=== PATIENT | female | born 2005 | race Caucasian/White ===

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

== ENCOUNTER 2024-07-09 13:30 | Day surgery (SDC) | payer OTHER, SELFPAY ==
[2024-07-09] VITALS (9 sets, daily range): BP systolic 90–134; BP diastolic 60–79; PULSE 77–85; RESP 16; TEMP 36.6–36.7; O2SAT 99–100; BMI 18.1
[2024-07-09 14:10] LABS: Internal QC Validated? YES +Cl - CLEAR BKGD; Pregnancy, Urine Negative Negative
--- NOTE | 2024-07-09 14:24 | PCM.PRE.AN2 ---
ASA Classification* ASA Classification ASA Classification: 2 Assessment & Plan Anesthesia* Anesthesia Assessment Anesthesia Assessment: Discussed sedation and/or anesthesia options, risks, benefits, and alternatives with patient/parents/legal guardian/POA. Questions invited. The patient/parents/legal guardian/POA seems to understand and agrees to proceed with anesthesia plan. Reviewed the physical assessment, medical history, allergy history and patient home medications list prior to surgery/procedure/anesthetic and documented any changes. Performed airway and anesthesia risk assessments. Anesthesia Type Anesthesia Type: MAC History Source History Obtained from:: Patient and Chart Anesthesia Focused Assessment* Temperature: 97.8 F Pulse Rate: 85 Blood Pressure: 134/79 Respiratory Rate: 16 Pulse Ox: 100 Oxygen Delivery Method: Room Air Airway Assessment Mouth opens: >3 cm Mallampati Score: III Teeth Condition: Intact Neck Range of motion (ROM): Full ROM (slow to move) Focused Labs Anesthesia Preop lab: CBC CHEMISTRY Potassium 3.6 mmol/L (3.5-5.1) 03/15/19 10:05 03/15/19 Sodium 140 mmol/L (136-145) 03/15/19 10:05 03/15/19 BUN 8 mg/dL (7-18) 03/15/19 10:05 03/15/19 Creatinine 0.59 mg/dL (0.55-1.02) 03/15/19 10:05 03/15/19 Glucose 138 mg/dL (74-106) H 03/15/19 10:05 03/15/19 COAG Urine Test Negative Negative 07/09/24 13:45 07/09/24 Pre-Assessment Diagnosis/Proposed Procedure Planned Operative Procedure(s): RIGHT LITTLE FINGER A1 TAMIKA RELEASE Anesthesia History 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 When Was Last Pacemaker Check QUESTION #4 FULL TEXT: You/Your Family Experience fever (hyperthermia) with Anesthesia Last Oral Intake Last Oral intake: Last Oral Intake NPO since 08:00 07/09/24 13:57 Meds taken in AM with sips of No 07/09/24 13:57 water? Meds patient instructed to take am of surgery Any additional information?: Yes Meds taken in AM with sips of water?: Yes PONV PONV - nuclear fuels reclamation engineer: PONV - nuclear fuels reclamation engineer Female Yes 06/27/24 13:01 HX of Motion Sickness Yes 06/27/24 13:01 HX of N/V After Surgery No 06/27/24 13:01 Non-Smoker Yes 06/27/24 13:01 Duration of Surgery greater No 06/27/24 13:01 than 60 minutes Number of Risk Factors 3 06/27/24 13:01 PONV Score Moderate Risk 06/27/24 13:01 Height & Weight Height & Weight: Anesthesia: Height & Weight Height 5 ft 6 in 07/09/24 13:57 Weight: 51 kg 07/09/24 13:57 Body Mass Index (BMI) 18.1 07/09/24 13:57 Respiratory Assessment Respiratory Assessment - nuclear fuels reclamation engineer: Respiratory Tract Infection Hx - nuclear fuels reclamation engineer Hx Respiratory Tract Infection No 06/27/24 13:01 STOP Sleep Apnea STOP Sleep Apnea - nuclear fuels reclamation engineer: STOP Sleep Apnea - nuclear fuels reclamation engineer Hx Hypertension No 06/27/24 13:01 Hx Sleep Apnea No 06/27/24 13:01 CPAP BIPAP Do you snore loudly (louder No 06/27/24 13:01 than talking or can be heard Do you often feel tired/ Yes 06/27/24 13:01 fatigued/ sleepy during daytime? Has anyone observed you stop No 06/27/24 13:01 breathing during sleep? STOP Results Negative 06/27/24 13:01 QUESTION #5 FULL TEXT : Do you snore loudly (louder than talking or can be heard through closed doors)? 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 Specify any problems Hx of Preganancy in last 3 No 06/27/24 13:01 Months Nurse Filling Out Transfusion DSCHRIBER 06/27/24 13:01 & Questions: Date: 06/27/24 06/27/24 13:01 Time: 13:02 06/27/24 13:01 Patient unable to answer at this time (ie. confused, unrespo /Reproduction History /Reproductive History - nuclear fuels reclamation engineer: /Reproductive Hx- nuclear fuels reclamation engineer Hx Now No 06/27/24 13:01 Gestational Age (in weeks): EDC: Hx Hx Para Hx Section SAB No 06/27/24 13:01 Active Medications Active Medications: Current Medications Generic Name Dose Route Start Last Admin Trade Name Freq PRN Reason Stop Dose Admin Cefazolin Sodium 2 gm/ N/A 20 mls @ 400 mls/hr 07/09/24 15:10 IV 07/09/24 15:12 PREOP ONE [facility] Medical History Wears glasses Depression Anxiety Marijuana use Alcohol use History of steroid therapy Easy bruising Back pain Migraine headache Non-smoker History of pain when walking Hip arthritis Scoliosis Anemia Epilepsy Seizures Home Medications ?Medication ?Instructions ?Recorded ?Last Taken ?Type folic acid 1 mg tablet 3 mg PO QDAY 04/01/24 Unknown History medroxyprogesterone 150 mg/mL 150 mg IM Q12W 04/01/24 Unknown History intramuscular suspension lamotrigine 200 mg tablet 200 mg PO BID 06/21/24 07/09/24 History levetiracetam 750 mg 1,500 mg PO QDAY 06/21/24 07/08/24 History tablet,extended release 24 hr Allergy/AdvReac Type Severity Reaction Status Date / Time No Known Allergies Allergy Verified 07/09/24 13:55 Family History Father Atrial fibrillation Grandmother Atrial fibrillation Grandmother Diabetes Stomach cancer Surgical History H/O spinal fusion Social History Smoking Status: Never smoker Review of Systems (Anesthesia) ROS Narrative System reviewed and no additional complaints, except as documented.
--- NOTE | 2024-07-09 15:37 | HP.PCM_ITS ---
History and Physical Date of Admission: 07/09/24 [facility] [address] [place] [address] OFFICE VISIT Date of Service: 06/21/24 MR#: [id number] Acct: [id number] Name: MARTIN URBINA Rep #: [id number] : 2005 Provider: Dr. Fred Caldwell DO Age/Sex: 19/F Location[place] [facility] Status: Signed Intake Vital Signs 04/01/2410:13 Height 5 ft 6 in Weight: 112 lb 8 oz BMI 18.1 Intake Visit Reasons: RIGHT HAND Chief Complaint: right pinky finger Allergies No Known Allergies Allergy (Verified 06/21/24 11:02) Medications ?Medication ?Instructions ?Recorded ?Confirmed ?Type folic acid 1 mg tablet 3 mg PO QDAY 04/01/24 06/21/24 History medroxyprogesterone 150 mg/mL 150 mg IM Q12W 04/01/24 06/21/24 History intramuscular suspension lamotrigine 200 mg tablet 200 mg PO BID 06/21/24 06/21/24 History levetiracetam 750 mg 1,500 mg PO QDAY 06/21/24 06/21/24 Histo ry tablet,extended release 24 hr PFSH Medical History (Updated 06/21/24 @ 11:21 by Cherri Allen) Hip arthritis Scoliosis Anemia Epilepsy Seizures Surgical History (Updated 06/21/24 @ 11:21 by Cherri Allen) H/O spinal fusion Family History Father Atrial fibrillationGrandmother Atrial fibrillationGrandmother Diabetes Stomach cancer Social History Smoking Status: Never smoker HPI RIGHT HAND Details: This documentation accurately reflects the service provided and the decisions made by me, Dr. Fred Caldwell, 06/21/24 1056. Part of today?s visit was documented by Kailey CARSON, acting as scribe. MARTIN URBINA is a 19 year old F here today for right pinky finger trigger finger. She states that yesterday morning 06/20 she woke up to her finger being stuck and more painful than before but notes that it hasn't been triggering as often. She states that she would like to talk about surgery rather than continuing with injections. The injection that was given last visit did take away her triggering for a period of time. 04/01/2024 visit:NEW patient for her right pinky finger. She states that for about a month now it has been locking on her. She states that it is always painful but is worse when it locks up and tries to straighten it. She denies prior injury or surgery. She denies taking anything for pain. She states the pain goes all the way up the finger. Denies numbness, tingling or other associated symptoms. She states that the finger has gotten caught in a car door a few times in her early teens. Plan:I advised patient that she has trigger finger . Spoke with patient that her treatment options are do nothing, anti-inflammatory, injection, or a1 sophia release. Patient wishes to proceed with an injection today. Ortho Exam General General: Yes no acute distress Neurologic: Yes alert and Yes oriented x3 Psychologic: Yes reasonable and appropriate Right Wrist/Hand Skin/Wound: No Swelling, No Ecchymosis, Yes nail intact and Yes capillary refill normal A1 sophia trigger: Yes WRIST: hypertrophy of ring and 5th digit very faint /mild triggering on exam but she keeps the finger flexed as though can not straighten. Left Wrist/Hand Skin/Wound: No Swelling and No Ecchymosis Head: Normocephalic Atraumatic Chest: symmetrical rise, non-labored breathing, no audible wheeze Abdomen: no guarding, non-rigid Coding Level of Care Code Off vis,est,level 4 Diagnoses Trigger finger, right little finger M65.351 Assessment and Plan Assessment and Plan (1) Trigger finger, right little finger: Status: Acute Plan Patient is here today for trigger finger of the right pinky finger. She had an injection on 04/01/24 that did beef cattle specialist her good relief however triggering returned and she is not interested in any further injections. Reviewed the pre-operative plans with the patient. Risks and benefits of the procedure were fully explained, including but not limited to infection, neurovascular injury, continued pain, stiffness, need for further surger/recurrence, general risks of anesthesia,. The patient understands all the risks and does wish to proceed with written consent. I advised patient that for the fist 2 weeks she will have a 1/2 pound restriction then the third week she can increase to 5lbs. After the first 3 weeks she can lift however much is comfortable but I did advise her that she may have some palm tenderness. Projected surgery date is July 09. She does not need any work restrictions that she is unemployed. Follow up at 2 weeks post-op or sooner if pain, swelling, numbness or associated symptoms, or concerns develop. All questions answered. Patient in agreement of plan. 06/21/24 1128 I have examined the patient and the H&P has been reviewed. There are no clinical changes since date of exam. <Electronically signed by Fred Caldwell DO> Date Fred Caldwell DO
[2024-07-09] MEDS: Cefazolin 2 GM in Syringe IV (15:43)
[2024-07-09] MEDS: Lidocaine 1% /Epi 1:100 (20ml) 20 ML Vial (15:55)
--- NOTE | 2024-07-09 16:10 | OP.PCM_ITS ---
Operative Report (Standard) Operative Information Date of Procedure: 07/09/24 Pre-Operative Diagnosis: Right fifth digit trigger finger Post-Operative Diagnosis: Same Surgery/Procedure Performed: Right fifth digit A1 sophia release cold storage supervisor: Yes Stock Raiser: Gary Maharaj Tasks completed by certified surgical first assistant: Opening & closing and Retracting Type of Anesthesia: Local and MAC RN Documented Start/Stop Times: Operation Date: 07/09/24 15:10 Case Time Into Pre-Op 07/09/24 13:40 Out of Pre-Op 07/09/24 15:39 Anesthesia Start 07/09/24 15:43 Into Room 07/09/24 15:43 Procedure Start 07/09/24 15:55 Procedure End 07/09/24 16:06 Procedure Start Time: 15:55 Procedure Stop Time: 16:06 Select all DRAINS/GRAFTS/IMPLANTS that apply: None Estimated Blood Loss: 0 Specimen collected: No Description of surgery: Preoperative diagnosis; right fifth digit trigger finger Postoperative diagnosis; same Procedure: Right fifth digit A1 sophia release Anesthesia: Local with MAC Tourniquet time; 10 minutes 250 mm Hg Complications: None Indication for procedure; This is a 19-year-old female- with symptoms consistent with trigger finger. Risks benefits and alternatives were reviewed including risks of bleeding infection nerve tendon tissue damage need for further surgery and continued pain and symptoms, hypersensitivity to scar/incision and recurrence. Procedure; The patient was met in the preoperative holding area the operative extremity was identified by both patient and physician and was marked the patient was met by anesthesia and brought back to the operating room and transferred to the operating table in the supine position. Aanesthesia was started. A well-padded tourniquet was placed on the operative upper extremity. The patient was prepped and draped in the usual sterile fashion. A timeout was called to ensure the proper patient procedure and extremity were being contemplated. 0.5 percent Marcaine was injected into the incisional area. Esmarch was used tourniquet was inflated. 15 blade scalpel was used to make a longitudinal incision directly over the A1 sophia was carried down through the subcutaneous tissue Miguel retractors placed radial and ulnar protecting the digital nerves and a Ragnell retractor was used at the apex of the incision under direct visualization a deep blade scalpel was used to release the A1 sophia. The wound was thoroughly irrigated and closed with 4-0 nylon vertical mattress edges. Dressing was applied in the form of Xeroform 4 x 4 web roll and an Terrance wrap. Patient tolerated the procedure well was brought back to the PACU in stable condition. Surgical Findings: Trigger finger Complications Complications: No
--- NOTE | 2024-07-09 16:12 | DCINST_ITS ---
Discharge Instructions Diet Discharge Diet: No restrictions Dressing / Incision Call your doctor if you observe: Shortness of breath and Chest pain Additional Dressing/Incision Instructions:: Ice and elevate operative extremity next 72 hours. Keep dressing on clean and dry for 48 hours then may remove and allow warm soapy water to rinse over incision but do not submerge until sutures are out. Then apply bandaid over incision and change daily. encourage finger range of motion. Not lift more than 1/2 pound. Minimize narcotic use only as needed and directed as it can be addictive, may use OTC NSAID and Tylenol to supplement/substitute for pain control. Must keep animals away from incision, must be kept clean until completely healed Follow Up Care Please Follow Up With: Fred Caldwell DO When: 2 weeks Test Results: Test results from this visit will be discussed in further detail at your follow- up appointment, if applicable. Discharge Plan Admission Primary Reason for Your Visit: Right fifth digit trigger finger Attending Provider: Fred Caldwell Primary Care Provider: Care Physician,Carisa Primary Instructions Print Language: Mauritian Discharge Orders/Prescriptions Prescriptions: New hydrocodone-acetaminophen 5-325 mg tablet 1 tab PO Q4H PRN (Reason: pain) 2 Days Qty: 6 0RF No Action folic acid 1 mg tablet 3 mg PO QDAY medroxyprogesterone 150 mg/mL suspension 150 mg IM Q12W Patient Comments: about a month ago lamotrigine 200 mg tablet 200 mg PO BID levetiracetam 750 mg tablet extended release 24 hr 1,500 mg PO QDAY Referrals / Follow Up: Care Physician,No Primary [Primary Care Provider] - Disposition Disposition (needs filled in before D/C Order can be placed): Home, Self Care
--- NOTE | 2024-07-09 16:20 | PCM.POST.ANE ---
Anesthesia: Postop Eval I Current Vital Signs Temperature: 98.1 F Pulse Rate: 78 Blood Pressure: 90/60 Respiratory Rate: 16 Pulse Ox: 99 Oxygen Delivery Method: Nasal Cannula Oxygen Flow Rate (L/min): 6 Assessment Airway patent: Yes Spontaneous unlabored respirations: Yes Mental status: Asleep nausea: No Vomiting: No Anesthesia Complication: No Fluid Hydration Crystalloid volume administer (ml): 10 Total IV fluid infused: 10 Progress Note Anesthesia document: Postop Eval 1 completed: Yes
--- NOTE | 2024-07-09 19:06 | POSTOPAN2_ITS ---
Anesthesia Postop Eval I Sum Postop Eval Completion status Anesthesia document: Postop Eval 1 completed: Yes Anesthesia Postop Eval I Summary Anesthesia Postop Eval I Summary: Anesthesia Postop Eval I: Assessment Summary Airway patent Yes 07/09/24 16:21 NETWORK TECHNICAL ANALYST.[email or web address] Spontaneous unlabored Yes 07/09/24 16:21 NETWORK TECHNICAL ANALYST.LMIL respirations Mental status Asleep 07/09/24 16:21 NETWORK TECHNICAL ANALYST.LMIL nausea No 07/09/24 16:21 NETWORK TECHNICAL ANALYST.LMIL Vomiting No 07/09/24 16:21 NETWORK TECHNICAL ANALYST.LMIL Anesthesia Postop Eval I: Fluid Summary Crystalloid volume administer 10 07/09/24 16:21 NETWORK TECHNICAL ANALYST.LMIL (ml) Colloids volume administered ( ml) Blood Product volume administered (ml) Total IV fluid infused 10 07/09/24 16:21 NETWORK TECHNICAL ANALYST.LMIL Anesthesia Postop Eval I: Summary Notes Anesthesia Complication No 07/09/24 16:21 NETWORK TECHNICAL ANALYST.LMIL Anesthesia Complication Comment: Post-operative progress note Anesthesia: Postop Eval II Evaluation Mental status: Awake and Calm Pain Level: 1 nausea: No Vomiting: No Complications Anesthesia Complication: No
--- NOTE | 2024-07-09 19:06 | PCM.POSTANE2 ---
Anesthesia Postop Eval I Sum Postop Eval Completion status Anesthesia document: Postop Eval 1 completed: Yes Anesthesia Postop Eval I Summary Anesthesia Postop Eval I Summary: Anesthesia Postop Eval I: Assessment Summary Airway patent Yes 07/09/24 16:21 LOAN REVIEW [email or web address] Spontaneous unlabored Yes 07/09/24 16:21 LOAN REVIEW [email or web address] respirations Mental status Asleep 07/09/24 16:21 LOAN REVIEW [email or web address] nausea No 07/09/24 16:21 LOAN REVIEW [email or web address] Vomiting No 07/09/24 16:21 LOAN REVIEW [email or web address] Anesthesia Postop Eval I: Fluid Summary Crystalloid volume administer 10 07/09/24 16:21 LOAN REVIEW [email or web address] (ml) Colloids volume administered ( ml) Blood Product volume administered (ml) Total IV fluid infused 10 07/09/24 16:21 LOAN REVIEW [email or web address] Anesthesia Postop Eval I: Summary Notes Anesthesia Complication No 07/09/24 16:21 LOAN REVIEW [email or web address] Anesthesia Complication Comment: Post-operative progress note Anesthesia: Postop Eval II Evaluation Mental status: Awake and Calm Pain Level: 1 nausea: No Vomiting: No Complications Anesthesia Complication: No
== END 2024-07-09 17:43 | disposition home or self-care (01) ==
LOC: SDC 13:36 → AC 13:36
PROVIDERS: Anesthesiology; Visit Provider Orthopaedic Surgery
PROC: (CPT 26055; principal; 2024-07-09 15:00)
DX: M65.351 Trigger finger, right little finger (principal)
CPT/HCPCS: 26055; 01810; 81025; A4216; J2405